=== PATIENT | female | born 1965 | race Caucasian/White ===

== ENCOUNTER 2016-12-20 06:38 | Emergency (ER) | payer MEDICAID ==
[~2016-12-20] VITALS: Wt 54.0 kg
[~2016-12-20 06:38] MED LIST: ALBU8.5H3 INH; ALBU8.5H5 INH; GUAI118L94 PO; HYDR-3498 PO; HYDR25SU24 PR; IBUP-1542 PO; MOME13HF2 IH; POLY17PO6 PO; PRED20TA PO; PRED50TA PO; UDTYL PO
--- NOTE | 2016-12-20 07:06 | ERD ---
ER Documentation Chief Complaint Date/Time DATE: 12/20/16 TIME: 07:03 Chief Complaint cough congestion and headache no neuro def. onset 1 wk. hand numbness HPI 51-year-old female presents to the emergency room for on and off productive cough for about a week. She also complains of facial pain/headache. Stated that her headache started gradually without specific date and time of onset. She also stated that she felt like she had a fever the other day but never took her temperature. She also added that she has chest pain on exertion and she stated that it radiates to her left neck and bilateral arms. Denies head trauma, that this is the worst headache of her life, loss of consciousness, dizziness, blurry vision, changes in vision, photophobia, ear pain, throat pain, difficulty swallowing, hemoptysis, abdominal pain, back pain , loss of appetite, nausea, vomiting, hematochezia, diarrhea, constipation, urinary symptoms, bladder and bowel incontinences, extremity weakness, extremity tenderness, numbness or tingling sensation, difficulty walking, recent travel, recent exposure to illness, recent antibiotic use in the last 3 months, fever, chills. Allergy: No known drug allergies. PMH: Asthma. Family medical history: Denies family history of cardiac disease. Medications: Pro-air. Surgery: Denies. Primary Social History: Not working at this time. Denies smoking, use of alcohol, use of illegal drugs. ROS All systems reviewed and are negative except as per history of present illness. Medications Home Meds Active Scripts Acetaminophen* (Tylophen*) 500 Mg Capsule, 1 CAP PO Q6H Y for PAIN AND OR ELEVATED TEMP, #20 CAP Prov:JOSH YE 12/20/16 Prednisone* (Prednisone*) 20 Mg Tab, 20 MG PO DAILY for 5 Days, TAB Prov:JOSH YE 12/20/16 Albuterol Sulfate* (Proair HFA*) 8.5 Gm Hfa.aer.ad, 2 PUFF INH Q4, #1 INHALER Prov:JOSH YE 12/20/16 Amoxicillin/Potassium Clav (Amox-Clav 875-125 mg Tablet) 875-125 mg Tab, 1 TAB PO BID for 7 Days, #14 TAB Prov:JOSH YE 12/20/16 Ibuprofen* (Motrin*) 600 Mg Tab, 600 MG PO Q6, #20 TAB Prov:ANNA SANDS PA-C 11/25/15 Hydrocodone Bit-Acetaminophen* (Paragon*) 5-325 Mg Tab, 1 TAB PO Q6 Y for PAIN, # 10 TAB Prov:ANNA SANDS PA-C 11/25/15 Mometasone-Formoterol (Dulera) 100-5 Mcg - 13 Gm Hfa.aer.ad, 2 PUFFS IH BID for 30 Days, EA 1 Refill Prov:GLADIS CERRATO MD 07/17/15 Prednisone* (Prednisone*) 20 Mg Tab, 60 MG PO DAILY for 6 Days, TAB 60MG / DAY X 3 DAYS THEN 40MG/ DAY X 3 DAYS Prov:GLADIS CERRATO MD 07/17/15 Albuterol Sulfate* (Proair HFA*) 8.5 Gm Hfa.aer.ad, 2 PUFF INH Q4 for 7 Days, INH Prov:GLADIS CERRATO MD 07/17/15 Albuterol Sulfate* (Albuterol Sulfate* HFA) 8.5 Gm Hfa.aer.ad, 1-2 PUFF INH Q4 Y for SHORTNESS OF BREATH, #1 EA Prov:CARTER CALDERON PA-C 07/06/15 Prednisone* (Prednisone*) 20 Mg Tab, 40 MG PO DAILY for 4 Days, TAB Prov:CARTER CALDERON PA-C 07/06/15 Acetaminophen* (Tylenol*) 160 Mg/5 Ml Soln, 10 ML PO Q8H Y for PAIN AND OR ELEVATED TEMP, #4 OZ Prov:CARTER CALDERON PA-C 06/21/15 Polyethylene Glycol* (Miralax*) 17 Gm Powd.pack, 17 GM PO DAILY, #7 Prov:CARTER CALDERON PA-C 06/21/15 Hydrocortisone Acetate* (Anusol-HC*) 25 Mg/Supp.rect Supp.rect, 1 SUPP SC BID Y for HEMORROID PAIN/ITCHING, #12 SUPP.RECT Prov:CARTER CALDERON PA-C 06/21/15 Prednisone* (Prednisone*) 50 Mg Tablet, 50 MG PO DAILY for 5 Days, TAB Prov:BRINDA SHEA NP 06/15/15 Guaifenesin-Codeine Phosphate* (Guaifenesin* with Codeine Liq) 120 Ml Liquid, 5 ML PO Q4H for COUGH, #30 ML Prov:BRINDA SHEA NP 06/15/15 Albuterol Sulfate* (Albuterol Sulfate* HFA) 8.5 Gm Hfa.aer.ad, 2 PUFF INH Q4 Y for SHORTNESS OF BREATH, #1 EA Prov:BRINDA SHEA NP 06/15/15 Albuterol Sulfate* (Proair HFA*) 8.5 Gm Hfa.aer.ad, 2 PUFF INH Q4 for 10 Days, INH Prov:GLADIS CERRATO MD 06/06/15 Prednisone* (Prednisone*) 20 Mg Tab, 40 MG PO DAILY for 4 Days, TAB START 06/07 Prov:GLADIS CERRATO MD 06/06/15 Allergies Allergies: Coded Allergies: No Known Allergy (Unverified , 11/25/15) PMhx/Soc History of Surgery: Yes () Anesthesia Reaction: No Hx Neurological Disorder: No Hx Respiratory Disorders: Yes (asthma) Hx Cardiac Disorders: No Hx Psychiatric Problems: No Hx Miscellaneous Medical Probl: No Hx Alcohol Use: No Hx Substance Use: No Hx Tobacco Use: No Physical Exam Vitals Vital Signs Date Time Temp Pulse Resp B/P Pulse Ox O2 Delivery O2 Flow Rate FiO2 12/20/16 07:33 68 20 96 21 12/20/16 06:44 98.8 58 20 124/77 98 Physical Exam CONSTITUTIONAL: Well-appearing; well-nourished. HEAD: Normocephalic; atraumatic. EYES: Conjunctiva clear, sclera non-icteric, EOM intact. PERRL Ears: Hearing intact. EACs clear, TMs non-bulging, non-inflamed, translucent & mobile, ossicles normal appearance, No obstructions, no erythema, no discharges Nose: No obstructions. No polyps. No external lesions. Congestion. No external lesions, septum and turbinates normal. No rhinorrhea. No discharges. Frontal sinus is tender to palpation. Maxillary sinus is tender to palpation. MOUTH: Moist mucous membranes, no lesion, no obstructions, no vesicles, no thrush, patent airway Throat: Uvula in midline. Right tonsil is +1 with no erythema, no exudate. Left tonsil is +1 with no erythema, no exudate. Tolerating secretions well. Good gag reflex. Patent airway. Neck: Supple, without lesions, bruits, or adenopathy. No mass. Thyroid non- enlarged and non-tender to palpation. CHEST: Symmetrical chest. Respirations even and not labored. No retractions noted. CARDIOVASCULAR: Normal S1, S2. RRR. No murmurs, gallops. RESPIRATORY: Normal chest excursion with respiration; breath sounds clear and equal bilaterally; no wheezes, rhonchi, or rales. Breathing even and unlabored. Speaking in clear, full, and complete sentences w/ ease. ABDOMEN: Normal bowel sounds normal. Soft, round, non-distended, non-guarding, no tenderness, no rebound, no organomegaly, no masses, no pulsating abdominal mass. No hernia. No peritoneal signs. : No CVA tenderness. BACK: Symmetrical shoulder. Spine is midline without deformity, tenderness. No evidence of trauma or deformity. PELVIS: Stable pelvis. No evidence of trauma or deformity. MUSCULOSKELETAL: Normal gait and station. No misalignment, asymmetry, crepitation, defects, tenderness, masses, effusions, decreased range of motion, instability, atrophy or abnormal strength or tone in the head, neck, spine, ribs , pelvis or extremities. No calf tenderness. NEUROVASCULAR: Distal pulses are present. Pedal pulse are present, equal, and normal. Capillary refills are < 2 seconds. NEUROLOGIC: Alert and oriented x4. Speaks full and clear sentences. Cranial Nerves II-XII normal. Sensation to pain, touch, and proprioception normal. Grossly unremarkable. No neurologic deficits. Romberg test is negative. PSYCHOLOGICAL: The patients mood and manner are appropriate. No hallucinations , delusions. Not SI. Not HI. Has the capacity to decide for self SKIN: Normal for age and ethnicity; warm; dry; good turgor; no apparent lesions or exudates. No rashes, hives, discoloration. Intact. Results 24 hrs Current Medications Medications (Trade) Dose Ordered Sig/Jermaine Route PRN Reason Start Time Stop Time Status Last Admin Dose Admin Albuterol (Proventil 0.083% (Neb)) 5 mg ONCE STAT HHN 12/20/16 07:15 12/20/16 07:16 DC 12/20/16 07:33 Ipratropium [place] (Atrovent 0.02% (Neb)) 0.5 mg ONCE ONCE N 12/20/16 07:30 12/20/16 07:31 DC 12/20/16 07:33 Procedures/MDM Examination: Please see physical examination. Disease process, medical treatment was explained to the patient and family member. They verbalized understanding and agreed with the diagnostic tests, medical treatment, and follow-up care. EKG: Sinus bradycardia with ventricular rate of 59 bpm. No evidence of acute myocardial infarction. Treatment: Albuterol and Atrovent. Re-evaluation: Denies headache, dizziness, blurred vision, changes in vision, neck pain, shoulder pain, chest pain, arm pain, abdominal pain, back pain. No nausea and vomiting. Respirations even and unlabored. Lung sounds are clear to auscultation. Unremarkable abdominal exam. Alert oriented 4. Speaks full and clear sentences. Tolerating secretions. No drooling. No difficulty swallowing. Patent airway. No neurological deficits. Romberg test is negative. Consultation: None. Differential diagnosis: Acute myocardial infarction versus asthma exacerbation versus status asthmaticus versus asthmatic bronchitis versus pneumonia versus bronchitis versus upper respiratory infection versus shortness of breath versus cough Medical decision makin-year-old female presents to the emergency room for on and off productive cough for about a week. She also complains of facial pain /headache. Stated that her headache started gradually without specific date and time of onset. She also stated that she felt like she had a fever the other day but never took her temperature. She also added that she has chest pain on exertion and she stated that it radiates to her left neck and bilateral arms. Patient's complaint, patient's history about her complaint, my physical findings, diagnostic test results are consistent with my final diagnosis of asthma exacerbation, asthmatic bronchitis, acute clinical sinusitis. Medications prescribed are the following: Augmentin. Prednisone. Pro-air. Tylenol. Patient and family member are made aware of the side effects and adverse reactions of the medications prescribed. Instructed on when to seek emergent and medical attention in case allergic/anaphylactic reactions or severe side effects and or adverse reactions to medications. Patient and family member verbalized understanding. Patient instructed Instructed to follow-up with his PCP in 24-48 hours. Instructed to Call 911 for chest pain, shortness of breath. Advised to come back here in ED as soon as possible for severity of symptoms which includes but not limited to: any new symptoms; shortness of breath/difficulty of breathing; cardiovascular changes; severe gastrointestinal symptoms; signs and symptoms of bleeding and or infection; signs of compartment syndrome/neurovascular changes; neurological changes/deficits. Patient and family member verbalized understanding. Upon discharge, patient is alert and oriented x 4, speaks full and clear sentences, denies pain, has no neurological deficits, has no neurovascular deficits, difficulty of breathing. Breathing even and unlabored. Lung sounds are clear to auscultation. Not in distress. Appears comfortable. Ambulatory with steady gait. Appears satisfied with care provided here in ED. Departure Diagnosis: Primary Impression: Asthma with acute exacerbation Additional Impressions: Sinusitis, acute frontal Sinusitis, acute maxillary Asthmatic bronchitis Condition: Good Additional Instructions: Patient instructed Instructed to follow-up with his PCP in 24-48 hours. Patient stated that she will make sure to see her primary care physician in the next 24 hours. Instructed to Call 911 for chest pain, shortness of breath. Advised to come back here in ED as soon as possible for severity of symptoms which includes but not limited to: any new symptoms; shortness of breath/difficulty of breathing; cardiovascular changes; severe gastrointestinal symptoms; signs and symptoms of bleeding and or infection; signs of compartment syndrome/neurovascular changes; neurological changes/deficits. Patient and family member verbalized understanding. JOSH YE Dec 20, 2016 07:06
[2016-12-20] MEDS ORDERED: ALBUTEROL 0.083% (NEB) 2.5 MG/3 ML AMP HHN STA (07:15)
[2016-12-20] MEDS ORDERED: IPRATROPIUM (NEB) 0.5 MG/2.5 ML AMP HHN ONE (07:30)
[2016-12-20] MEDS ORDERED: AMOX1TAB10 PO (07:39)
[2016-12-20] MEDS ORDERED: ALBU8.5H3 INH (07:40)
[2016-12-20] MEDS ORDERED: PRED20TA PO (07:40)
[2016-12-20] MEDS ORDERED: ACET500C5 PO (07:40)
== END 2016-12-20 07:59 | disposition home or self-care (01) ==
LOC: FTE 06:38
DX: J45.901 Unspecified asthma with (acute) exacerbation (principal); J01.80 Other acute sinusitis; R00.1 Bradycardia, unspecified
CPT/HCPCS: 93005; 94664; Z7502; Z7610

== ENCOUNTER 2017-02-20 17:11 | Emergency (ER) | payer SELFPAY ==
[~2017-02-20] VITALS: Ht 154.9 cm; Wt 56.0 kg
[~2017-02-20 17:11] MED LIST changes: +ACET500C5 PO; +AMOX1TAB10 PO
[2017-02-20 17:14] VITALS: Ht 154.9 cm; Wt 56.0 kg
[2017-02-21] MEDS ORDERED: AZIT250T94 PO (10:54)
[2017-02-21] MEDS ORDERED: D-ME473S18 PO (10:54)
[2017-02-21] MEDS ORDERED: ALBU8.5H3 INH (10:54)
== END 2017-02-20 19:18 | disposition left against medical advice (07) ==
LOC: FTE 17:11
DX: Z53.21 Procedure and treatment not carried out due to patient leaving prior to being seen by health care provider (principal)

== ENCOUNTER 2017-02-21 09:08 | Emergency (ER) | payer MEDICAID ==
[~2017-02-21] VITALS: Wt 55.5 kg
[2017-02-21] MEDS ORDERED: DEXAMETHASONE 10 MG/ML 1 ML INJ IM ONE (10:00)
[2017-02-21] MEDS ORDERED: LEVALBUTEROL (NEB) 1.25 MG/0.5 ML AMP HHN ONE (10:00)
[2017-02-21] MEDS ORDERED: IPRATROPIUM (NEB) 0.5 MG/2.5 ML AMP HHN ONE (10:00)
--- NOTE | 2017-02-21 10:37 | RADRPT ---
PROCEDURE: XR Chest AP portable CLINICAL INDICATION: Cough TECHNIQUE: An AP portable radiograph of the chest was submitted. COMPARISON: 06/15/2015 FINDINGS: Support Hardware: None Cardiovascular: The cardiovascular silhouette appears unremarkable. Lung Lamas: The lung lamas appear clear with no nodule, alveolar infiltrate, or interstitial promi nence evident. Pleural Spaces: No pneumothorax or pleural effusion is identified. Osseous Structures: The osseous structures appear intact. Soft Tissues: The soft tissues appear unremarkable. IMPRESSION: Stable and unremarkable portable chest. Physician Betzaida Date Time Electronically viewed and signed by Kailey Colvin Physician on 02/21/2017 10:36 RH/
[2017-02-21] MEDS ORDERED: D-ME473S18 PO (10:54)
[2017-02-21] MEDS ORDERED: AZIT250T94 PO (10:54)
[2017-02-21] MEDS ORDERED: ALBU8.5H3 INH (10:54)
[2017-02-21 11:03] VITALS: BP 128/87; PULSE 74; RESP 19; TEMP 98.4
--- NOTE | 2017-02-21 14:48 | ERD ---
ER Documentation Chief Complaint Date/Time DATE: 02/21/17 TIME: 14:46 Chief Complaint COUGH, WHEEZING HPI This is a 51-year-old female presents to the ER with a cough for the last 5 days. Patient has a past medical history of asthma and states that she feels short of breath whenever she is coughing. Patient denies any chest pain. She denies any fever, sore throat, ear pain. Patient states she has a lot of chest congestion. Patient denies any headache, body pain. She has not traveled anywhere. There are no sick contacts at home. ROS 12 point review of systems was done, all negative except per HPI. Medications Home Meds Active Scripts Dextromethorphan Hb-Promethazine Hcl (Promethazine DM Syrup) 473 Ml Syrup, 10 ML PO Q6H Y for COUGH, #4 OZ Prov:WU WASHINGTON 02/21/17 Albuterol Sulfate* (Proair HFA*) 8.5 Gm Hfa.aer.ad, 2 PUFF INH Q4, #1 INHALER Prov:WU WASHINGTON 02/21/17 Azithromycin* (Zithromax*) 250 Mg Tablet, 250 MG PO .ZPACK DIRECTED, #6 TAB TAKE 500 MG (2 TABS) THE FIRST DAY THEN 250 MG (1 TAB) DAYS 2-5 Prov:WU WASHINGTON 02/21/17 Acetaminophen* (Tylophen*) 500 Mg Capsule, 1 CAP PO Q6H Y for PAIN AND OR ELEVATED TEMP, #20 CAP Prov:JOSH YE 12/20/16 Prednisone* (Prednisone*) 20 Mg Tab, 20 MG PO DAILY for 5 Days, TAB Prov:JOSH EY 12/20/16 Albuterol Sulfate* (Proair HFA*) 8.5 Gm Hfa.aer.ad, 2 PUFF INH Q4, #1 INHALER Prov:JOSH YE 12/20/16 Amoxicillin/Potassium Clav (Amox-Clav 875-125 mg Tablet) 875-125 mg Tab, 1 TAB PO BID for 7 Days, #14 TAB Prov:JOSH YE 12/20/16 Ibuprofen* (Motrin*) 600 Mg Tab, 600 MG PO Q6, #20 TAB Prov:ANNA SANDS PA-C 11/25/15 Hydrocodone Bit-Acetaminophen* ([place]*) 5-325 Mg Tab, 1 TAB PO Q6 Y for PAIN, # 10 TAB Prov:ANNA SANSD PA-C 11/25/15 Mometasone-Formoterol (Dulera) 100-5 Mcg - 13 Gm Hfa.aer.ad, 2 PUFFS IH BID for 30 Days, EA 1 Refill Prov:GLADIS CERRATO MD 07/17/15 Prednisone* (Prednisone*) 20 Mg Tab, 60 MG PO DAILY for 6 Days, TAB 60MG / DAY X 3 DAYS THEN 40MG/ DAY X 3 DAYS Prov:GLADIS CERRATO MD 07/17/15 Albuterol Sulfate* (Proair HFA*) 8.5 Gm Hfa.aer.ad, 2 PUFF INH Q4 for 7 Days, INH Prov:GLADIS CERRATO MD 07/17/15 Albuterol Sulfate* (Albuterol Sulfate* HFA) 8.5 Gm Hfa.aer.ad, 1-2 PUFF INH Q4 Y for SHORTNESS OF BREATH, #1 EA Prov:CARTER CALDERON PA-C 07/06/15 Prednisone* (Prednisone*) 20 Mg Tab, 40 MG PO DAILY for 4 Days, TAB Prov:CARTER CALDERON PA-C 07/06/15 Acetaminophen* (Tylenol*) 160 Mg/5 Ml Soln, 10 ML PO Q8H Y for PAIN AND OR ELEVATED TEMP, #4 OZ Prov:CARTER CALDERON PA-C 06/21/15 Polyethylene Glycol* (Miralax*) 17 Gm Powd.pack, 17 GM PO DAILY, #7 Prov:CARTER CALDERON PA-C 06/21/15 Hydrocortisone Acetate* (Anusol-HC*) 25 Mg/Supp.rect Supp.rect, 1 SUPP TX BID Y for HEMORROID PAIN/ITCHING, #12 SUPP.RECT Prov:CARTER CALDERON PA-C 06/21/15 Prednisone* (Prednisone*) 50 Mg Tablet, 50 MG PO DAILY for 5 Days, TAB Prov:BRINDA SHEA NP 06/15/15 Guaifenesin-Codeine Phosphate* (Guaifenesin* with Codeine Liq) 120 Ml Liquid, 5 ML PO Q4H for COUGH, #30 ML Prov:BRINDA SHEA NP 06/15/15 Albuterol Sulfate* (Albuterol Sulfate* HFA) 8.5 Gm Hfa.aer.ad, 2 PUFF INH Q4 Y for SHORTNESS OF BREATH, #1 EA Prov:BRINDA SHEA NP 06/15/15 Albuterol Sulfate* (Proair HFA*) 8.5 Gm Hfa.aer.ad, 2 PUFF INH Q4 for 10 Days, INH Prov:GLADIS CERRATO MD 06/06/15 Prednisone* (Prednisone*) 20 Mg Tab, 40 MG PO DAILY for 4 Days, TAB START 06/07 Prov:GLADIS CERRATO MD 06/06/15 Allergies Allergies: Coded Allergies: No Known Allergy (Unverified , 02/21/17) PMhx/Soc History of Surgery: Yes () Anesthesia Reaction: No Hx Neurological Disorder: No Hx Respiratory Disorders: Yes (asthma) Hx Cardiac Disorders: No Hx Psychiatric Problems: No Hx Miscellaneous Medical Probl: No Hx Alcohol Use: No Hx Substance Use: No Hx Tobacco Use: No Smoking Status: Never smoker Physical Exam Vitals Vital Signs Date Time Temp Pulse Resp B/P Pulse Ox O2 Delivery O2 Flow Rate FiO2 02/21/17 11:03 98.4 74 19 128/87 99 Room Air 02/21/17 09:59 70 18 99 21 02/21/17 09:11 97.6 63 18 120/78 100 Physical Exam GENERAL: The patient is well-developed, well-nourished, in no acute distress. NECK: Cervical spine is non tender with no step off. Supple, no nuchal rigidity HEENT: Atraumatic. Pupils equal, round and reactive to light. Extraocular muscles are grossly intact. Conjunctivae pink, no discharge. Bilateral tympanic membranes are clear with no evidence of erythema, effusion or dulling of the light reflex. Tonsilar erythema with no exudates or uvular deviation. Clear rhinorrhea. RESPIRATORY: Excitatory wheezing in all lung lamas. No rales rhonchi or crackles. HEART: Regular rate and rhythm. No murmurs, clicks, rubs or gallops. EXTREMITIES: No clubbing or cyanosis. Full range of motion. Grossly neurovascularly intact. NEUROLOGIC: Alert and oriented. Cranial nerves II through XII are intact. SKIN: There is no rash. The skin is warm and dry. Results 24 hrs Current Medications Medications (Trade) Dose Ordered Sig/Jermaine Route PRN Reason Start Time Stop Time Status Last Admin Dose Admin Levalbuterol (Xopenex Neb) 1.25 mg ONCE ONCE HHN 02/21/17 10:00 02/21/17 10:01 DC 02/21/17 09:58 Ipratropium [place] (Atrovent 0.02% (Neb)) 0.5 mg ONCE ONCE HHN 02/21/17 10:00 02/21/17 10:01 DC 02/21/17 09:58 Dexamethasone (Decadron) 10 mg ONCE ONCE IM 02/21/17 10:00 02/21/17 10:01 DC 02/21/17 10:32 Procedures/MDM Differential diagnosis includes but is not limited to; Viral URI, allergic rhinitis, bronchitis, pertussis,pneumonia. Patient will be treated for possible bacterial bronchitis with wheezing. She will be sent home with azithromycin. Patient was told to continue on her inhalers at home. Clinical suspicion for pneumonia is low as patient appears well, is not hypoxic or in any respiratory distress. Additionally, patients physical examination is benign. Plan was discussed with patient they understand and agree. Patient needs to follow up with PCP in 1-2 days or return to ER sooner if symptoms worsen. Departure Diagnosis: Primary Impression: Asthmatic bronchitis Condition: Stable Patient Instructions: Bronchitis With Wheezing (Adult) Additional Instructions: Llame al doctor MAANA y daniel louann BULMARO PARA DENTRO DE 1-2 EWING.Dgale a la secretaria que nosotros le instruimos hacer esta bulmaro.Avise o llame si millan condicin se empeora antes de la bulmaro. Regresa aqui si peor o no mejor. WU WASHINGTON Feb 21, 2017 14:48
== END 2017-02-21 11:04 | disposition home or self-care (01) ==
LOC: FTE 09:08
DX: J45.901 Unspecified asthma with (acute) exacerbation (principal)
CPT/HCPCS: 71010; 94664; 96372; J1100; Z7502; Z7610

== ENCOUNTER 2018-07-07 01:52 | Emergency (ER) | END 2018-07-07 03:49 | disposition home or self-care (01) ==